=== PATIENT | male | born 1980 | race African-American/Black ===

== ENCOUNTER 2017-03-23 22:46 | Emergency (ER) | payer MEDICAID ==
[~2017-03-23] VITALS: Ht 190.5 cm; Wt 73.0 kg
[2017-03-24 01:20] VITALS: BP 140/100
[2017-03-24 01:27] LABS: BASOPHILS % 0.4 % (0.0-2.0); EOSINOPHILS % 0.9 % (0.0-5.0); HEMATOCRIT. 37.7 % (42.0-52.0); HEMOGLOBIN. 12.8 g/dL (14.0-18.0); LYMPHOCYTES % 25.9 % (20.0-50.0); MEAN CORPUSCULAR HEMOGLOBIN 28.6 pg (28.0-32.0); MEAN CORPUSCULAR VOLUME 84.4 fL (80.0-94.0); MEAN PLATELET VOLUME 6.7 fl (7.4-10.4); MONOCYTES % 10.1 % (2.0-8.0); NEUTROPHILS % 62.7 % (40.0-76.0); PLATELET 367 x1000/uL (130-400); RED BLOOD CELL COUNT 4.47 mill/uL (4.7-6.1); RED CELL DISTRIBUTION WIDTH 15.3 % (11.6-14.6)
[2017-03-24 01:31] LABS: CHLORIDE 106 mEq/L (98-107)
[2017-03-24 01:39] LABS: CARBON DIOXIDE 27 mEq/L (21-32)
[2017-03-24 01:57] LABS: CLARITY URINE CLEAR (CLEAR); COLOR URINE YELLOW (YELLOW); GLUCOSE URINE NEGATIVE (NEGATIVE); KETONES URINE NEGATIVE (NEGATIVE); LEUKOCYTE ESTERASE URINE NEGATIVE (NEGATIVE); NITRITE URINE NEGATIVE (NEGATIVE); OCCULT BLOOD URINE 1+ (NEGATIVE); PROTEIN URINE NEGATIVE (NEGATIVE); SPECIFIC GRAVITY URINE 1.011 (1.005-1.030)
== END 2017-03-24 03:36 | disposition home or self-care (01) ==
LOC: ER 22:48
DX: N20.0 Calculus of kidney (principal); R31.0 Gross hematuria; R03.0 Elevated blood-pressure reading, without diagnosis of hypertension; G43.909 Migraine, unspecified, not intractable, without status migrainosus; F12.90 Cannabis use, unspecified, uncomplicated
CPT/HCPCS: 36415; 74176; 80053; 81001; 83690; 85025; 99285; Z7610

== ENCOUNTER 2018-08-23 15:44 | Emergency (ER) | payer MEDICAID ==
[~2018-08-23] VITALS: Ht 190.5 cm; Wt 71.0 kg
[2018-08-23] MEDS ORDERED: KETOROLAC 30MG/ML VIAL IM ONE (20:30)
[2018-08-23 20:49] VITALS: BP 120/82
== END 2018-08-23 20:51 | disposition home or self-care (01) ==
LOC: ER 15:44
DX: G89.29 Other chronic pain (principal); M54.5 Low back pain; F12.10 Cannabis abuse, uncomplicated
CPT/HCPCS: 96372; 99283; J1885